=== PATIENT | male | born 1965 | race Caucasian/White ===

== ENCOUNTER 2016-10-13 12:39 | Outpatient (CLI) ==
[2014-02-18 18:23] VITALS: BMI 28.5
[2016-10-13 13:40] LABS: BASOPHILS # (AUTO) 0.1 K/uL (0-0.2); BASOPHILS % (AUTO) 0.8 % (0.0-3.0); EOSINOPHILS # (AUTO) 0.4 K/ul (0.0-0.7); HEMATOCRIT 47.3 % (42.0-52.0); HEMOGLOBIN 15.7 g/dl (14.0-18.0); IMMATURE GRANULOCYTE % (AUTO) 0.2 % (0.0-5.0); LYMPHOCYTES # (AUTO) 3.1 K/uL (0.60-3.4); LYMPHOCYTES % (AUTO) 35.3 (10.0-50.0); MEAN CORPUSCULAR HEMOGLOBIN 29.9 pg (27.0-31.0); MEAN CORPUSCULAR HGB CONC 33.2 (31.8-35.4); MEAN CORPUSCULAR VOLUME 90.1 fl (80.0-94.0); MONOCYTES # (AUTO) 0.8 K/uL (0.4-2.0); MONOCYTES % (AUTO) 8.6 (0-10); NEUTROPHILS # (AUTO) 4.5 K/ul (2.0-6.9); NEUTROPHILS % (AUTO) 51.1; PLATELET COUNT 282 10^3/uL (140-440); RED BLOOD COUNT 5.25 10^6/ul (4.70-6.10); WHITE BLOOD COUNT 8.72 K/ul (4.2-10.2)
[2016-10-13 13:58] LABS: ALBUMIN 4.3 g/dL (3.4-5.0); ALBUMIN/GLOBULIN RATIO 0.93; ANION GAP 12.8; BILIRUBIN,TOTAL 0.59 mg/dL (0.00-1.20); BUN/CREATININE RATIO 13.23; CHOL/HDL RATIO 2.2 (4.5-6.4); CREATININE 1.36 mg/dL (0.60-1.10); POTASSIUM 3.8 mmol/L (3.5-5.1); TOTAL PROTEIN 8.9 g/dL (6.4-8.2)
[2016-10-13 16:48] LABS: BILIRUBIN,URINE Negative (NEGATIVE); KETONES,URINE Negative (NEGATIVE); LEUKOCYTE ESTERASE ,URINE Negative (NEGATIVE); NITRITE,URINE Negative (NEGATIVE); PROTEIN,URINE Negative (NEGATIVE); URINE, BLOOD Negative (NEGATIVE)
[2016-10-13 16:51] LABS: ADD URINE MICROSCOPIC YES
[2016-10-13 17:01] LABS: COCAIN SCREEN,URINE NEGATIVE (NEGATIVE)
== END 2016-10-13 12:40 | disposition home or self-care (01) ==
LOC: LAB 12:39
PROVIDERS: ATTEND General Practice
DX: I10 Essential (primary) hypertension (principal); F98.8 Other specified behavioral and emotional disorders with onset usually occurring in childhood and adolescence; Z02.83 Encounter for blood-alcohol and blood-drug test; Z79.899 Other long term (current) drug therapy
CPT/HCPCS: 36415; 80053; 80061; 80306; 81001; 85025

== ENCOUNTER 2017-01-10 14:44 | Outpatient (CLI) ==
[2014-02-18 18:23] VITALS: BMI 28.5
--- NOTE | 2017-01-10 15:46 | DI ---
EXAM: Three views of the left ankle. History: Left ankle pain. Findings: No acute fracture or dislocation. Small plantar spur. Minimal enthesiopathy at the inser tion of the Achilles tendon. Diffuse subcutaneous edema which is moderate. Impression: No acute osseous abnormality. Subcutaneous edema. Mild calcaneal enthesiopathy.
--- NOTE | 2017-01-10 16:14 | DI ---
EXAM: Three views of the left foot. History: Left foot pain. Findings: No acute fracture or dislocation. Borderline pes planus deformity. Small plantar spur. Mild to moderate degenerative changes of the first MTP joint. Impression: No acute osseous abnormality. Other findings as detailed above.
== END 2017-01-10 14:45 | disposition home or self-care (01) ==
LOC: RAD 14:44
PROVIDERS: ATTEND General Practice
DX: M25.472 Effusion, left ankle (principal)

== ENCOUNTER 2017-07-22 14:53 | Outpatient (CLI) ==
[2014-02-18 18:23] VITALS: BMI 28.5
== END 2017-07-22 14:54 | disposition home or self-care (01) ==
LOC: FCC-LAB 14:53
PROVIDERS: ATTEND General Practice
DX: I10 Essential (primary) hypertension (principal); Z12.5 Encounter for screening for malignant neoplasm of prostate; Z79.899 Other long term (current) drug therapy
CPT/HCPCS: 36415; 80053; 80061; 81001; 85025

== ENCOUNTER 2017-07-25 10:46 | Outpatient (CLI) ==
[2014-02-18 18:23] VITALS: BMI 28.5
== END 2017-07-25 10:47 | disposition home or self-care (01) ==
LOC: CAR 10:46
PROVIDERS: ATTEND General Practice
DX: R00.0 Tachycardia, unspecified (principal); I10 Essential (primary) hypertension
CPT/HCPCS: 93005; 93010

== ENCOUNTER 2017-09-23 10:43 | Outpatient (CLI) ==
[2014-02-18 18:23] VITALS: BMI 28.5
== END 2017-09-23 10:44 | disposition home or self-care (01) ==
LOC: CAR 10:43
PROVIDERS: ATTEND General Practice
DX: R00.0 Tachycardia, unspecified (principal)
CPT/HCPCS: 93005; 93010

== ENCOUNTER 2017-11-25 12:41 | Outpatient (CLI) ==
[2014-02-18 18:23] VITALS: BMI 28.5
== END 2017-11-25 12:42 | disposition home or self-care (01) ==
LOC: FCC-LAB 12:41
PROVIDERS: ATTEND General Practice
DX: F90.2 Attention-deficit hyperactivity disorder, combined type (principal); I10 Essential (primary) hypertension; Z79.899 Other long term (current) drug therapy; Z12.5 Encounter for screening for malignant neoplasm of prostate
CPT/HCPCS: 36415; 80053; 80061; 81001; 85025

== ENCOUNTER 2018-01-13 12:16 | Outpatient (CLI) ==
[2014-02-18 18:23] VITALS: BMI 28.5
--- NOTE | 2018-01-13 14:30 | DI ---
EXAM: Four views of the right knee. History: Right knee pain. Comparison: Right knee radiograph 05/07/2015 Findings: No acute fracture or dislocation. Grossly intact hardware at the knee. Old healed fractu re of the distal femur. There is anterior soft tissue swelling. Impression: 1. No acute osseous abnormality. 2. Grossly intact hardware. 3. Anterior soft tissue swelling
== END 2018-01-13 12:17 | disposition home or self-care (01) ==
LOC: RAD 12:16
PROVIDERS: ATTEND General Practice
DX: M25.561 Pain in right knee (principal)

== ENCOUNTER 2018-07-24 10:28 | Outpatient (CLI) ==
[2014-02-18 18:23] VITALS: BMI 28.5
== END 2018-07-24 10:29 | disposition home or self-care (01) ==
LOC: LAB 10:28
PROVIDERS: ATTEND General Practice
DX: Z00.00 Encounter for general adult medical examination without abnormal findings (principal); I10 Essential (primary) hypertension; M15.9 Polyosteoarthritis, unspecified
CPT/HCPCS: 36415; 80053; 80061; 81001; 83036; 85025

== ENCOUNTER 2018-07-27 15:46 | Outpatient (CLI) ==
[2014-02-18 18:23] VITALS: BMI 28.5
== END 2018-07-27 15:47 | disposition home or self-care (01) ==
LOC: RHC-LAB 15:46
PROVIDERS: ATTEND General Practice
DX: R74.8 Abnormal levels of other serum enzymes (principal)
CPT/HCPCS: 36415; 80074